=== PATIENT | female | born 1945 | race Caucasian/White ===

== ENCOUNTER 2016-08-22 06:51 | Day surgery (SDC) | payer MEDICARE, BC ==
[~2016-08-22 06:51] MED LIST: Lactated Ringers 1,000 ML IV SCH; Lidocaine 1%/Sod Bicarbonate in NS 8.4% 1 ML Syringe PRN; Sodium Chloride 0.9% 10 ML Syringe FLUSH PRN
[2016-08-22] MEDS ORDERED: Midazolam 1 MG/ML 2 ML SDV ONE (07:38)
[2016-08-22] MEDS ORDERED: Propofol 200 MG/20 ML SDV ONE (07:38)
[2016-08-22] MEDS ORDERED: fentaNYL 100 MCG/2 ML SDV ONE (07:38)
--- NOTE | 2016-08-22 07:46 | PCM.PREANE ---
Preanesthetic Assessment - Procedure Proposed Procedure: Colonoscopy - Anesthesia/Transfusion/Family Hx Anesthesia History: Prior Anesthesia Without Reaction Family History of Anesthesia Reaction: No Transfusion History: No Prior Transfusion(s) - Review of Systems General: No Symptoms Pulmonary: No Symptoms Cardiovascular: Palpitations (otherwise asymptomatic) Gastrointestinal: No symptoms Neurological: No Symptoms Other: Reports: None - Physical Assessment NPO Status Date: 08/21/16 NPO Status Time: 20:00 O2 Sat by Pulse Oximetry: 97 Respiratory Rate: 16 Vital Signs: Last Vital Signs Temp 37.1 C 08/22/16 07:10 Pulse 67 08/22/16 07:10 Resp 16 08/22/16 07:10 BP 152/82 H 08/22/16 07:10 Pulse Ox 97 08/22/16 07:10 Height: 1.73 m Weight: 117.027 kg ASA Class: 2 Mental Status: Alert & Oriented x3 Airway Class: Mallampati = 1 Dentition: Reports: Loving(s), Implants, Missing Tooth/Teeth, Caries Thyro-Mental Finger Breadths: 3 Mouth Opening Finger Breadths: 3 ROM/Head Extension: Full Lungs: Clear to auscultation, Normal respiratory effort Cardiovascular: Regular Rate, Regular Rhythm, No Murmurs - Allergies Allergies/Adverse Reactions: Allergies Allergy/AdvReac Type Severity Reaction Status Date / Time rosuvastatin [From Crestor] Allergy Muscle Verified 08/22/16 07:33 Aches simvastatin [From Zocor] Allergy Muscle Verified 08/22/16 07:33 Aches - Acknowledgements Anesthesia Type Planned: MAC Pt an Appropriate Candidate for the Planned Anesthesia: Yes Alternatives and Risks of Anesthesia Discussed w Pt/Guardian: Yes Pt/Guardian Understands and Agrees with Anesthesia Plan: Yes PreAnesthesia Questionnaire HEENT History: Reports: Cataract, Impaired Vision Other HEENT History: wears glasses Cardiovascular History: Reports: High Cholesterol, Hypertension, Other (See Below) Other Cardiovascular History: palpitations, tachycardia Respiratory History: Reports: None Gastrointestinal History: Reports: Colon Polyp, Other (See Below) Other Gastrointestinal History: abdominal pain, tubular adenoma [employer] History: Reports: Musculoskeletal History: Reports: None Neurological History: Reports: None Psychiatric History: Reports: None Endocrine/Metabolic History: Reports: Other (See Below) Other Endocrine/Metabolic History: hyperglycemia Hematologic History: Reports: Anemia, Autoimmune Thrombocytopenic Purpura Immunologic History: Reports: None Oncologic (Cancer) History: Reports: None Dermatologic History: Reports: None - Past Surgical History Head Surgeries/Procedures: Reports: None HEENT Surgical History: Reports: Cataract Surgery GI Surgical History: Reports: Appendectomy, Colonoscopy Female Surgical History: Reports: Breast Biopsy, Section, D&C, Hysterectomy, Tubal Ligation - SUBSTANCE USE Smoking Status *Q: Former Smoker (Quit over 15 yrs ago after 1 yr of experimental smoking) Tobacco Use Within Last Twelve Months: No Second Hand Smoke Exposure: No Days Per Week of Alcohol Use: 0 (one or two alcoholic beverages per year) Recreational Drug Use History: No - HOME MEDS Home Medications: Home Meds Aspirin 81 mg PO DAILY 03/07/16 [History] Atenolol [Tenormin] 25 mg PO DAILY 03/07/16 [History] Ezetimibe [Zetia] 10 mg PO DAILY 03/07/16 [History] Omeprazole 20 mg PO DAILY 03/07/16 [History] Ubiquinol 100 mg PO DAILY 03/07/16 [History] Celecoxib 200 mg PO DAILY 08/21/16 [History] Cholecalciferol (Vitamin D3) [Vitamin D3] 2,000 unit PO DAILY 08/21/16 [History] Magnesium Oxide 400 mg PO DAILY 08/21/16 [History] - CURRENT (IN HOUSE) MEDS Current Meds: Current Medications Lactated Ringer's (Ringers, Lactated) 1,000 mls @ 125 mls/hr IV ASDIRECTED THOMAS Stop: 08/22/16 23:00 Last Admin: 08/22/16 07:21 Dose: 125 mls/hr Lidocaine/Sodium Bicarbonate (Buffered Lidocaine 1% In Ns 8.4%) 0.25 ml .XX ONETIME PRN PRN Reason: Prior to IV Start Stop: 08/22/16 18:00 Last Admin: 08/22/16 07:21 Dose: 0.25 ml Sodium Chloride (Saline Flush) 10 ml FLUSH ASDIRECTED PRN PRN Reason: Keep Vein Open Stop: 08/22/16 18:00 Discontinued Medications Fentanyl (Sublimaze) Confirm Administered Dose 100 mcg .ROUTE .STK-MED ONE Stop: 08/22/16 07:39 Midazolam HCl (Versed 1 Mg/Ml) Confirm Administered Dose 2 mg .ROUTE .STK-MED ONE Stop: 08/22/16 07:39 Propofol (Diprivan 20 Ml) Confirm Administered Dose 200 mg .ROUTE .[facility]-MED ONE Stop: 08/22/16 07:39
--- NOTE | 2016-08-22 08:21 | PCM.OPNOTE ---
- General Post-Op/Procedure Note Date of Surgery/Procedure: 08/22/16 Operative Procedure(s): Colonoscopy with cold forceps biopsy Findings: colon polyps x 3 Pre Op Diagnosis: Personal history of colon polyps Post-Op Diagnosis: Colon polyps x 3. Internal hemorrhoids Anesthesia Technique: MAC Primary Surgeon: Lion Cardenas Anesthesia Provider: Osvaldo Hardin EBL in mLs: 5 Complications: None Condition: Good Free Text/Narrative:: After patient gave verbal and written consent, she was placed on BP and pulse ox monitoring. She was given IV sedation which she tolerated well. The olympus colonoscope was inserted per rectum and advanced to the cecum without difficulty. The ileocecal valve and appendiceal orfice were imaged documenting cecal intubation. The scope was slowly withdrawn, the prep was excellent, the views were excellent. 3 small polyps were noted; 2 mm transverse polyp, 3 mm descending polyp, 2 mm rectal polyp. These were removed with cold forceps biopsy polypectomy. There was good hemostasis. There were no complications. The scope was retroflexed in the rectum and internal hemorrhoids were noted.
[2016-08-22 08:29] VITALS: BP 125/62
[2016-08-22] MEDS ORDERED: Lidocaine 1% 4 ML ONE (08:33)
--- NOTE | 2016-08-22 08:37 | PCM48HPAN ---
Post Anesthesia Note - EVALUATION WITHIN 48HRS OF ANESTHETIC Vital Signs in Normal Range: Yes Patient Participated in Evaluation: Yes Respiratory Function Stable: Yes Airway Patent: Yes Cardiovascular Function Stable: Yes Hydration Status Stable: Yes Pain Control Satisfactory: Yes Nausea and Vomiting Control Satisfactory: Yes Mental Status Recovered: Yes
== END 2016-08-22 09:05 | disposition home or self-care (01) ==
LOC: JD.SDS 06:51
PROVIDERS: ATTEND Family Medicine
PROC: 0DBP8ZZ Excision of Rectum, Via Natural or Artificial Opening Endoscopic (ICD-10-PCS; principal; 2016-08-22)
PROC: 0DBL8ZZ Excision of Transverse Colon, Via Natural or Artificial Opening Endoscopic (ICD-10-PCS; 2016-08-22)
DX: Z12.11 Encounter for screening for malignant neoplasm of colon (principal); D12.3 Benign neoplasm of transverse colon; K62.1 Rectal polyp; K64.8 Other hemorrhoids; Z86.010 Personal history of colon polyps; I10 Essential (primary) hypertension; E78.5 Hyperlipidemia, unspecified; E78.00 Pure hypercholesterolemia, unspecified; Z79.82 Long term (current) use of aspirin; Z79.899 Other long term (current) drug therapy; Z88.8 Allergy status to other drugs, medicaments and biological substances; Z98.51 Tubal ligation status; Z90.710 Acquired absence of both cervix and uterus; Z98.890 Other specified postprocedural states; Z87.891 Personal history of nicotine dependence
CPT/HCPCS: 45380; 88305; J2250; J3010; J7120; J2704

== ENCOUNTER 2022-03-26 10:55 | Inpatient (IN) | payer MEDICARE, BC ==
[2022-03-26 12:45] LABS: CORONAVIRUS COVID-19 NAA NEGATIVE (NEGATIVE)
[2022-03-26] MEDS ORDERED: Acetaminophen 325 MG Tab PO PRN (13:10)
[2022-03-26] MEDS ORDERED: Temazepam 7.5 MG Cap PO PRN (13:10)
[2022-03-26] MEDS ORDERED: Docusate Sodium 100 MG Cap PO PRN (13:10)
[2022-03-26] MEDS ORDERED: oxyCODONE 5 MG Tab PO PRN (13:10)
[2022-03-26] MEDS: Heparin Sodium 5,000 Units/ML Vial SUBCUT SCH ×2 (15:11→21:36)
[2022-03-27] MEDS: Heparin Sodium 5,000 Units/ML Vial SUBCUT SCH (05:24)
[2022-03-27 12:11] VITALS: BP 136/73; PULSE 76
== END 2022-03-27 13:50 | disposition home or self-care (01) | DRG 310 ==
LOC: JD.ED 10:55 → JD.MS 13:18
PROVIDERS: ADMIT Internal Medicine; ATTEND Internal Medicine
DX: I49.5 Sick sinus syndrome (principal); E78.5 Hyperlipidemia, unspecified; D64.9 Anemia, unspecified; Z20.822 Contact with and (suspected) exposure to COVID-19; I10 Essential (primary) hypertension; E78.00 Pure hypercholesterolemia, unspecified; Z88.8 Allergy status to other drugs, medicaments and biological substances; Z98.42 Cataract extraction status, left eye; Z98.41 Cataract extraction status, right eye; Z97.3 Presence of spectacles and contact lenses; Z86.010 Personal history of colon polyps; Z90.710 Acquired absence of both cervix and uterus; Z98.51 Tubal ligation status; Z90.49 Acquired absence of other specified parts of digestive tract; Z90.89 Acquired absence of other organs; Z98.890 Other specified postprocedural states; D69.3 Immune thrombocytopenic purpura; Z79.899 Other long term (current) drug therapy
CPT/HCPCS: 0241U; 36415; 80053; 83735; 84484; 85025; 93005; 99285; J1644

== ENCOUNTER 2022-07-03 07:05 | Day surgery (SDC) | payer MEDICARE, BC ==
[~2022-07-03 07:05] MED LIST changes: +Lidocaine 1%/Sod Bicarbonate in NS 8.4% 1 ML Syringe IDERM PRN; -Lidocaine 1%/Sod Bicarbonate in NS 8.4% 1 ML Syringe PRN; +Sodium Chloride 0.9% 10 ML Syringe FLUSH SCH
[2022-07-03] MEDS ORDERED: Propofol 200 MG/20 ML SDV ONE ×2 (08:46→09:00)
[2022-07-03] MEDS ORDERED: Lidocaine 1% 4 ML ONE (08:46)
[2022-07-03 09:54] VITALS: BP 111/56; PULSE 68
== END 2022-07-03 09:50 | disposition home or self-care (01) ==
LOC: JD.SDS 07:05
PROVIDERS: ATTEND Family Medicine
DX: Z12.11 Encounter for screening for malignant neoplasm of colon (principal); K57.30 Diverticulosis of large intestine without perforation or abscess without bleeding; R73.9 Hyperglycemia, unspecified; K21.9 Gastro-esophageal reflux disease without esophagitis; G90.09 Other idiopathic peripheral autonomic neuropathy; N95.1 Menopausal and female climacteric states; R00.2 Palpitations; I49.5 Sick sinus syndrome; F17.210 Nicotine dependence, cigarettes, uncomplicated; D64.9 Anemia, unspecified; M79.604 Pain in right leg; M79.605 Pain in left leg; Z98.49 Cataract extraction status, unspecified eye; Z98.51 Tubal ligation status; Z88.8 Allergy status to other drugs, medicaments and biological substances; Z79.899 Other long term (current) drug therapy; Z86.010 Personal history of colon polyps; Z90.49 Acquired absence of other specified parts of digestive tract; Z90.710 Acquired absence of both cervix and uterus
CPT/HCPCS: J2704; J3490; J7120

== ENCOUNTER 2024-03-25 19:15 | Emergency (ER) | payer MEDICARE, BC ==
[2024-03-25 19:27] VITALS: BP 158/86; PULSE 80
[2024-03-25 19:53] LABS: APPEARANCE,URINE CLEAR (Clear); BILIRUBIN,URINE NEGATIVE (Negative); COLOR,URINE LIGHT YELLOW (Yellow); GLUCOSE,URINE NEGATIVE (Negative); KETONES,URINE NEGATIVE (Negative); LEUKOCYTE ESTERASE,URINE TRACE (Negative); NITRITE,URINE NEGATIVE (Negative); OCCULT BLOOD,URINE NEGATIVE (Negative); PROTEIN,URINE NEGATIVE (Negative); UROBILINOGEN,URINE 0.2 (0.2-1.0)
[2024-03-25 20:04] LABS: BARBITURATE SCREEN,URINE NEGATIVE (CUTOFF=200); BENZODIAZEPINES SCREEN,URINE NEGATIVE (CUTOFF=150); BUPRENORPHINE SCREEN,URINE NEGATIVE (CUTOFF=10); METHADONE SCREEN, URINE NEGATIVE (CUTOFF=200); METHAMPHETAMINES SCREEN, URINE NEGATIVE (CUTOFF=500); OXYCODONE SCREEN,URINE NEGATIVE (CUT0FF=100); THC SCREEN,URINE 20 NG/ML NEGATIVE (CUTOFF=50)
[2024-03-25 20:09] LABS: AMPHETAMINES SCREEN, URINE NEGATIVE (CUTOFF=500)
[2024-03-25 20:10] LABS: BASOPHILS PERCENT AUTO 0.3 % (0.0-1.0); EOSINOPHILS ABSOLUTE AUTO 0.1 K/mm3 (0.0-0.4); EOSINOPHILS PERCENT AUTO 1.1 % (0.0-6.0); HEMATOCRIT 40.7 % (37.0-47.0); HEMOGLOBIN 13.8 gm/dl (12.0-16.0); IMMATURE GRAN ABSOLUTE AUTO 0.02 K/mm3 (0.00-0.05); IMMATURE GRAN PERCENT AUTO 0.3 % (0.0-0.4); LYMPHOCYTES ABSOLUTE AUTO 2.4 K/mm3 (1.0-4.8); LYMPHOCYTES PERCENT AUTO 31.6 % (24.0-44.0); MEAN CORPUSCULAR HEMOGLOBIN 31.2 pg (28.0-32.0); MEAN CORPUSCULAR HGB CONC 33.9 g/dl (32.0-36.0); MEAN CORPUSCULAR VOLUME 91.9 fl (83.0-99.0); MONOCYTES ABSOLUTE AUTO 0.5 K/mm3 (0.0-0.8); MONOCYTES PERCENT AUTO 6.2 % (0.0-8.0); NEUTROPHILS ABSOLUTE AUTO 4.6 K/mm3 (1.8-7.7); NEUTROPHILS PERCENT AUTO 60.5 % (41.0-71.0); PLATELET COUNT,PLT 158 K/mm3 (150-400); RED BLOOD CELL COUNT 4.43 M/mm3 (4.10-5.30)
[2024-03-25 20:30] LABS: BACTERIA,URINE FEW /hpf (FEW); MUCUS,URINE FEW /hpf (FEW); RBC,URINE 0-5 /hpf (0-5); SQUAMOUS EPITHELIAL CELLS,UR 0-5 /hpf (0-5); WBC,URINE 0-5 /hpf (0-5)
[2024-03-25 20:42] LABS: ALANINE AMINOTRANSFERASE,ALT 15 U/L (14-59); ALBUMIN 3.5 g/dl (3.4-5.0); ALKALINE PHOSPHATASE 79 U/L (46-116); ANION GAP 9.7 (5-15); ASPARTATE AMNIOTRANSFERASE,AST 12 U/L (15-37); BILIRUBIN TOTAL 0.5 mg/dL (0.2-1.0); BLOOD UREA NITROGEN,BUN 18 mg/dL (7-18); BUN/CREATININE RATIO 13.8 (14-18); CALCIUM 9.3 mg/dL (8.5-10.1); CARBON DIOXIDE,CO2 29 mEq/L (21-32); CHLORIDE,CL 107 mEq/L (98-107); CREATINE KINASE,CK 54 U/L (26-192); CREATININE 1.3 mg/dL (0.55-1.02); EST CRCL DRUG DOSING (CG) 36.56 mL/min; ESTIMATED GFR 42 mL/min (>60); GLUCOSE RANDOM 125 mg/dL (70-99); LIPASE 49 U/L (16-77); MAGNESIUM 1.7 mg/dL (1.8-2.4); POTASSIUM,K 4.7 mEq/L (3.5-5.1); SODIUM,NA 141 mEq/L (136-145)
[2024-03-25 20:44] LABS: TROPONIN I HIGH SENSITIVITY < 4 pg/mL (<=51)
[2024-03-25] MEDS ORDERED: Sodium Chloride 0.9% 500 ML IV ONE (20:58)
== END 2024-03-25 21:17 | disposition home or self-care (01) ==
LOC: JD.ED 19:15
DX: J02.9 Acute pharyngitis, unspecified (principal); E86.0 Dehydration; N28.9 Disorder of kidney and ureter, unspecified; B34.9 Viral infection, unspecified; I10 Essential (primary) hypertension; E78.00 Pure hypercholesterolemia, unspecified; Z79.899 Other long term (current) drug therapy; Z95.0 Presence of cardiac pacemaker; Z88.8 Allergy status to other drugs, medicaments and biological substances
CPT/HCPCS: 36415; 71045; 71045-26; 80053; 80306; 81001; 82550; 83690; 83735; 83880; 84484; 85025; 87428-QW; 87651-QW; 93005; 99285